=== PATIENT | female | born 1970 | race Two or more races ===

== ENCOUNTER → 2024-06-09 | Emergency (ER) | payer MEDICAID ==
[~2024-06-09] VITALS: Ht 162.6 cm; Wt 63.6 kg
[~2024-06-09] MED LIST: ACET-66 PO; OMEP20 PO
[2024-06-09] MEDS: SODIUM CHLORIDE 0.9% 1,000 ML IV ONE (04:22)
[2024-06-09] MEDS: OMEPRAZOLE 20 MG CAPSULE PO ONE (04:22)
[2024-06-09] MEDS: ONDANSETRON HCL 4 MG/2 ML VIAL IVP ONE (04:23)
[2024-06-09 04:24] LABS: BASOPHILS % (AUTO) 0.4 % (0.0-2.0); EOSINOPHILS % (AUTO) 1.9 % (1.0-6.0); HEMATOCRIT 38.2 % (36-46); HEMOGLOBIN 12.7 g/dL (12.0-16.0); LYMPHOCYTES # (AUTO) 2.1 K/uL (1.0-4.8); LYMPHOCYTES % (AUTO) 23.5 % (22.0-44.0); MEAN CORPUSCULAR HGB CONC 33.2 G/dL (31.0-37.0); MEAN CORPUSCULAR VOLUME 88 fL (80-100); MONOCYTES # (AUTO) 0.7 K/uL (0.1-1.0); MONOCYTES % (AUTO) 7.8 % (2.0-9.0); NEUTROPHILS % (AUTO) 66.4 % (40.0-70.0); PLATELET COUNT (AUTO) 258 K/uL (150-450); RED BLOOD CELL COUNT(AUTO) 4.36 MIL/uL (4.00-5.20)
[2024-06-09 04:41] LABS: ANION GAP 10 mmol/L (8-16); CALCIUM, TOTAL 9.4 mg/dL (8.8-10.5); CARBON DIOXIDE 29 mmol/L (22-29); CHLORIDE 102 mmol/L (98-107); CREATININE 0.61 mg/dL (0.60-1.30); GLOMERULAR FILTR. RATE CALC > 60 mL/min (>60); GLUCOSE,RANDOM 102 mg/dL (70-110); POTASSIUM 3.4 mmol/L (3.5-5.1); SODIUM SERUM 141 mmol/L (136-145); UREA NITROGEN, BLOOD 26 mg/dL (7-18)
[2024-06-09 04:46] LABS: ALANINE AMINOTRANSFERASE 27 U/L (12-78); ALBUMIN 3.9 g/dL (3.4-5.0); ALKALINE PHOSPHATASE 132 U/L (46-116); ASPARTATE AMINOTRANSFERASE 18 U/L (15-37); BILIRUBIN,TOTAL 0.5 mg/dL (0.1-1.0); LIPASE 28 U/L (16-77); TOTAL PROTEIN, SERUM 7.2 g/dL (6.4-8.2)
[2024-06-09 04:53] LABS: TROPONIN I-HIGH SENSITIVITY 7 ng/L (<51)
[2024-06-09 06:14] VITALS: BP 127/73; PULSE 75; RESP 18; TEMP 98.3; O2SAT 99
== END | disposition home or self-care (01) ==
LOC: EMS 03:28
DX: R10.13 Epigastric pain (principal); R07.9 Chest pain, unspecified
CPT/HCPCS: 99285; 96374; 71045; 96361; 80048; 80076; 83690; 84484; 85025; 36415; 93005; J2405; J7030